=== PATIENT | female | born 1985 | race African-American/Black ===

== ENCOUNTER 2019-02-09 15:09 | Emergency (ER) | payer OTHER ==
[~2019-02-09] VITALS: Ht 154.9 cm; Wt 54.4 kg
[~2019-02-09 15:09] MED LIST: ALBU2.5V8 INH; ONDA4TAB7 PO; PROM118S5 PO
[2019-02-09 15:25] VITALS: BP 130/69
--- NOTE | 2019-02-09 15:37 | PHYS DOC ---
Past Medical History Past Medical History: No Pertinent History Past Surgical History: Tubal ligation Alcohol Use: None Drug Use: None Adult General Chief Complaint Chief Complaint: COUGH HPI HPI Patient is a 33-year-old female who presents with complaint of productive cough and chest soreness. Patient states symptoms been present for close to a week now. She states that the cough is productive of green sputum. She denies any fever. She states that she is really sore in her lower ribs and her abdomen from all the coughing. She denies any nausea or vomiting.[] Review of Systems Review of Systems Constitutional: Denies fever or chills [] Respiratory: Complains of productive cough without shortness of breath [] Cardiovascular: No additional information not addressed in HPI [] GI: Denies abdominal pain, nausea, vomiting or diarrhea [] Allergies Allergies Allergies Coded Allergies Type Severity Reaction Last Updated Verified No Known Drug Allergies 05/08/13 No Physical Exam Physical Exam Constitutional: Well developed, well nourished, no acute distress, non-toxic appearance. [] Neck: Normal range of motion, no tenderness, supple, no stridor. [] Cardiovascular: Regular rate and rhythm[] Lungs & Thorax: There are fine rhonchi noted to auscultation [] Extremities: No tenderness, no cyanosis, no clubbing, ROM intact, no edema. [] Current Patient Data Vital Signs Vital Signs Date Time Temp Pulse Resp B/P (MAP) Pulse Ox O2 Delivery O2 Flow Rate FiO2 02/09/19 15:25 98.5 99 18 130/69 (89) 97 Room Air 98.5 EKG EKG [] Radiology/Procedures Radiology/Procedures [] Impressions: Chest x-ray demonstrates no acute process. Course & Med Decision Making Course & Med Decision Making Pertinent Labs and Imaging studies reviewed. (See chart for details) [] Dragon Disclaimer Dragon Disclaimer This electronic medical record was generated, in whole or in part, using a voice recognition dictation system. Departure Departure Impression: Primary Impression: Acute bronchitis Disposition: 01 HOME, SELF-CARE Condition: STABLE Referrals: NO PCP (PCP) Patient Instructions: Acute Bronchitis Scripts Benzonatate (TESSALON PERLE) 100 Mg Capsule 1 CAP PO TID PRN for COUGH, #21 CAP Prov: JULIAN COFFEY Jr. DO 02/09/19 Azithromycin (ZITHROMAX) 250 Mg Tablet 1 PKG PO UD, #6 TAB Prov: JULIAN COFFEY Jr. DO 02/09/19 Problem Qualifiers Primary Impression: Acute bronchitis Bronchitis organism: unspecified organism Qualified Codes: J20.9 - Acute bronchitis, unspecified JULIAN COFFEY Jr. DO Feb 09, 2019 15:37
[2019-02-09] MEDS ORDERED: BENZ100C PO (15:53)
[2019-02-09] MEDS ORDERED: AZIT250T PO (15:53)
[2019-02-09] MEDS ORDERED: TRAM50TA PO (15:57)
[2019-02-09] MEDS ORDERED: AZITHROMYCIN 250 MG TABLET. ONE (15:57)
[2019-02-09] MEDS ORDERED: AZITHROMYCIN 250 MG TABLET. PO ONE (16:00)
--- NOTE | 2019-02-09 16:32 | RAD ---
PA and lateral chest. HISTORY: Cough PA and lateral views were taken of the chest. Lungs are clear. Heart is normal in size. There is no pleural effusion. IMPRESSION: 1. No acute chest disease. Electronically signed by: Mario Taylor MD (02/09/2019 4:29 PM) [id number]
== END 2019-02-09 16:00 | disposition home or self-care (01) ==
LOC: ER 15:09
DX: J20.9 Acute bronchitis, unspecified (principal)
CPT/HCPCS: 71046; 99284; Q0144

== ENCOUNTER 2019-04-28 13:41 | Emergency (ER) | payer OTHER ==
[~2019-04-28] VITALS: Ht 149.9 cm; Wt 75.0 kg
[~2019-04-28 13:41] MED LIST changes: +AZIT250T PO; +BENZ100C PO; +TRAM50TA PO
[2019-04-28 14:10] VITALS: BP 122/55
[2019-04-28] MEDS ORDERED: HYDR-3164 PO (14:52)
[2019-04-28] MEDS ORDERED: CHLO15MO2 PO (14:52)
--- NOTE | 2019-04-28 14:52 | PHYS DOC ---
Past Medical History Past Medical History: No Pertinent History Past Surgical History: Tubal ligation Smoking Status: Former Smoker Alcohol Use: None Drug Use: None Adult General Chief Complaint Chief Complaint: DENTAL PROBLEM HPI HPI Patient is a 33 year old female who presents with 1 week of left upper and lower dental pain. Patient has many dental caries. States that she went to [facility] one month ago and they took x-rays and said that they can do much for her because she has broken bones at the top of her mouth she has had for very long time and that she needs to go to a specialist. She states that she called the number and left a message for the specialist dentist and they called back and told her that it could be $20-$25,000 to get her mouth 6. Patient rates her pain a 9 out of 10. She denies fevers, nausea, vomiting, headache, body aches, facial swelling. Review of Systems Review of Systems HENT: Denies nasal congestion or sore throat. Dental pain [] All other systems were reviewed and found to be within normal limits, except as documented in this note. Allergies Allergies Allergies Coded Allergies Type Severity Reaction Last Updated Verified No Known Drug Allergies 05/08/13 No Physical Exam Physical Exam Constitutional: Well developed, well nourished, no acute distress, non-toxic appearance. [] HENT: Normocephalic, atraumatic, bilateral external ears normal, oropharynx moist, no oral exudates, nose normal. Many Dental caries all over mouth. [] Eyes: PERRLA, EOMI, conjunctiva normal, no discharge. [] Neck: Normal range of motion, no tenderness, supple, no stridor. [] Cardiovascular:Heart rate regular rhythm, no murmur [] Lungs & Thorax: Bilateral breath sounds clear to auscultation [] Abdomen: Bowel sounds normal, soft, no tenderness, no masses, no pulsatile masses. [] Skin: Warm, dry, no erythema, no rash. [] Back: No tenderness, no CVA tenderness. [] Extremities: No tenderness, no cyanosis, no clubbing, ROM intact, no edema. [] Neurologic: Alert and oriented X 3, normal motor function, normal sensory function, no focal deficits noted. [] Psychologic: Affect normal, judgement normal, mood normal. [] Current Patient Data Vital Signs Vital Signs Date Time Temp Pulse Resp B/P (MAP) Pulse Ox O2 Delivery O2 Flow Rate FiO2 04/28/19 14:10 98.6 66 14 122/55 (77) 99 Room Air 98.6 EKG EKG [] Radiology/Procedures Radiology/Procedures [] Course & Med Decision Making Course & Med Decision Making Pertinent Labs and Imaging studies reviewed. (See chart for details) Has many dental caries all over her mouth. There is no gumline swelling or redness. No drainage and she is afebrile. She is told to keep calling the specialists and trying to get into his see a dentist. She states she's been trying Orajel and ibuprofen is not helping. Alert and oriented. speaks in full clear sentences. No facial swelling. Patient states she's been eating and drinking appropriately. No trismus. [] Dragon Disclaimer Dragon Disclaimer This electronic medical record was generated, in whole or in part, using a voice recognition dictation system. Departure Departure Impression: Primary Impression: Pain, dental Additional Impression: Dental caries Disposition: 01 HOME, SELF-CARE Condition: STABLE Referrals: NO PCP (PCP) Patient Instructions: Dental Caries-Brief, Dental Pain, [id number] Additional Instructions: Follow-up with dentist as soon as possible. Take medication as prescribed. Scripts Chlorhexidine Gluconate (PERIDEX) 15 Ml Mouthwash 15-30 ML PO TID for 8 Days, #473 ML 0 Refills Prov: SUGAR MCCLELLAND APRN 04/28/19 Hydrocodone/Apap 5-325 (NORCO 5-325 TABLET) 1 Each Tablet 1 TAB PO PRN Q6HRS PRN for PAIN, #10 TAB 0 Refills Prov: SUGAR MCCLELLAND APRN 04/28/19 Problem Qualifiers SUGAR MCCLELLAND APRN Apr 28, 2019 14:52
== END 2019-04-28 14:56 | disposition home or self-care (01) ==
LOC: ER 13:41
DX: K02.9 Dental caries, unspecified (principal); K08.89 Other specified disorders of teeth and supporting structures; Z87.891 Personal history of nicotine dependence
CPT/HCPCS: 99283

== ENCOUNTER 2019-05-27 15:00 | Emergency (ER) | payer OTHER ==
[~2019-05-27] VITALS: Ht 149.9 cm; Wt 145.0 kg
[~2019-05-27 15:00] MED LIST changes: +CHLO15MO2 PO; +HYDR-3164 PO
[2019-05-27 15:25] VITALS: BP 124/59
--- NOTE | 2019-05-27 15:46 | PHYS DOC ---
Past Medical History Past Medical History: No Pertinent History Past Surgical History: Tubal ligation Smoking Status: Never Smoker Alcohol Use: None Drug Use: None Adult General Chief Complaint Chief Complaint: SHORTNESS OF BREATH HPI HPI Patient is a 33 year old female presents to the ED with a chief complaint of cough and shortness of breath. Patient states that the symptoms started yesterday. Patient states that her daughter current coronavirus pandemic she was concerned and came to the ER to see if she could get tested. Patient denies being an active smoker. Patient denies any medical history. Patient denies having a fever. Review of Systems Review of Systems Patient denies fever, chills, nausea, vomiting, diarrhea, dysuria, chest pain, headache. Patient does complain of cough and shortness of breath All other systems were reviewed and found to be within normal limits, except as documented in this note. Allergies Allergies Allergies Coded Allergies Type Severity Reaction Last Updated Verified No Known Drug Allergies 05/08/13 No Physical Exam Physical Exam Constitutional: Well developed, well nourished, no acute distress, non-toxic appearance. [] HENT: Normocephalic, atraumatic Eyes: PERRLA, EOMI Neck: Normal range of motio Cardiovascular:Heart rate regular rhythm, no murmur [] Lungs & Thorax: Bilateral breath sounds clear to auscultation [] Abdomen: Bowel sounds normal, soft, no tenderness Extremities: No tenderness, no cyanosis, no clubbing, ROM intact, no edema. [] Neurologic: Alert and oriented X 3 Current Patient Data Vital Signs Vital Signs Date Time Temp Pulse Resp B/P (MAP) Pulse Ox O2 Delivery O2 Flow Rate FiO2 05/27/19 15:25 98.9 97 22 124/59 (80) 99 Room Air 98.9 EKG EKG [] Radiology/Procedures Radiology/Procedures [] Course & Med Decision Making Course & Med Decision Making I told patient that we not testing patients for coronavirus unless they are being admitted to the hospital. This is hospital policy. I have offered to do chest x-ray and flu screening. Patient states that she does not want any testing done. She has only wanted to come to the ER to see if she can be tested for the coronavirus. I have answered some questions that patient had about the coronavirus. Patient is reassured and states that she will go home. Patients oxygen sat is 99%. Discussed plan of care with patient. Patient is instructed to follow up with PCP in one to 2 days. Appropriate discharge instructions given to patient to return to the ED or to seek immediate medical evaluation. Patient is instructed to return to the ED if symptoms worsen or if any concerns. Dragon Disclaimer Dragon Disclaimer This electronic medical record was generated, in whole or in part, using a voice recognition dictation system. Departure Departure Impression: Primary Impression: Viral URI with cough Disposition: HOME, SELF-CARE Condition: STABLE Referrals: NO PCP (PCP) Patient Instructions: Upper Respiratory Infection, Adult Additional Instructions: Patient is instructed to follow up with PCP in one to 2 days. Appropriate discharge instructions given to patient to return to the ED or to seek immediate medical evaluation. Patient is instructed to return to the ED if symptoms worsen or if any concerns. BONI VARGAS DO May 27, 2019 15:46
== END 2019-05-27 16:15 | disposition home or self-care (01) ==
LOC: ER 15:00
DX: J06.9 Acute upper respiratory infection, unspecified (principal)
CPT/HCPCS: 99281

== ENCOUNTER 2019-11-04 13:58 | Emergency (ER) | payer OTHER ==
[~2019-11-04] VITALS: Ht 157.5 cm; Wt 62.0 kg
[2019-11-04 14:11] VITALS: BP 137/63
[2019-11-04] MEDS ORDERED: TRAM50TA PO (14:25)
--- NOTE | 2019-11-04 14:26 | PHYS DOC ---
Past Medical History Past Medical History: No Pertinent History Past Surgical History: Tubal ligation Smoking Status: Never Smoker Alcohol Use: None Drug Use: None General Adult EDM: Chief Complaint: BACK PAIN OR INJURY HPI: HPI: Patient is a 34 year old female who presents with a heavy metal rack fell on he r back in June and she has had continued mid to lower back pain that worsens with movement. 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 She states that they want to send her to physical therapy but she cannot get a hold of anybody. She states that she has a court date on November 18. She states that she ran out of tramadol yesterday and that is been helping her pain. She currently rates her sharp aching pain 8 out of 10. Review of Systems: Review of Systems: Constitutional: Denies fever or chills. [] Eyes: Denies change in visual acuity. [] HENT: Denies nasal congestion or sore throat. [] Respiratory: Denies cough or shortness of breath. [] Cardiovascular: Denies chest pain or edema. [] GI: Denies abdominal pain, nausea, vomiting, bloody stools or diarrhea. [] : Denies dysuria. [] Musculoskeletal: Mid to lower back pain or joint pain. [] Integument: Denies rash. [] Neurologic: Denies headache, focal weakness or sensory changes. Intermittent right hand tingling or numbness. [] Endocrine: Denies polyuria or polydipsia. [] Lymphatic: Denies swollen glands. [] Psychiatric: Denies depression or anxiety. [] Heart Score: Risk Factors: Risk Factors: DM, Current or recent (<one month) smoker, HTN, HLP, family history of CAD, obesity. Risk Scores: Score 0 - 3: 2.5% MACE over next 6 weeks - Discharge Home Score 4 - 6: 20.3% MACE over next 6 weeks - Admit for Clinical Observation Score 7 - 10: 72.7% MACE over next 6 weeks - Early Invasive Strategies Allergies: Allergies: Allergies Coded Allergies Type Severity Reaction Last Updated Verified No Known Drug Allergies 05/08/13 No Physical Exam: PE: Constitutional: Well developed, well nourished, no acute distress, non-toxic appearance. [] HENT: Normocephalic, atraumatic, bilateral external ears normal, oropharynx moist, no oral exudates, nose normal. [] Eyes: PERRLA, EOMI, conjunctiva normal, no discharge. [] Neck: Normal range of motion, no tenderness, supple, no stridor. [] Cardiovascular:Heart rate regular rhythm, no murmur [] Lungs & Thorax: Bilateral breath sounds clear to auscultation [] Abdomen: Bowel sounds normal, soft, no tenderness, no masses, no pulsatile masses. [] Skin: Warm, dry, no erythema, no rash. [] Back: Mid to upper lumbar focal bony spinal tenderness, no CVA tenderness. [] Extremities: No tenderness, no cyanosis, no clubbing, ROM intact, no edema. [] Neurologic: Alert and oriented X 3, normal motor function, normal sensory function, no focal deficits noted. [] Psychologic: Affect normal, judgement normal, mood normal. [] EKG: EKG: [] Radiology/Procedures: Radiology/Procedures: [] Course & Med Decision Making: Course & Med Decision Making Pertinent Labs and Imaging studies reviewed. (See chart for details) See HPI. Ambulatory with a steady gait. No saddle paresthesia. Speaks in full complete sentences. Alert and oriented x4. Patient states she only has numbness and tingling in her mid leg since the incident and her right hand. Patient denies any numbness and tingling in her bilateral lower extremities, loss of bowel bladder, dizziness, headache, fever, dysuria symptoms, chest pain, shortness of breath, abdominal pain, nausea, vomiting, diarrhea. Skin pink warm and dry. Radial pulses strong present. Bilateral lower extremities and upper extremities have equal strengths and dial marker. No extremity edema. Patient states when her right hand intermittently goes numb or starts tingling that is when she loses some strength in the hand. With palpation patient has focal bony spinal tenderness through the thoracic down into the upper lumbar areas. There is no bruising, deformity, swelling seen or felt. Neurologically intact. Xrays read by Dr Rucker as no acute findings. Patient to follow up with work compensation doctor. [] Hugo Disclaimer: Hugo Disclaimer: This electronic medical record was generated, in whole or in part, using a voice recognition dictation system. Departure Departure Impression: Primary Impression: Back pain Qualified Codes: M54.5 - Low back pain Additional Impression: Numbness and tingling in right hand Disposition: HOME, SELF-CARE Condition: STABLE Referrals: NO PCP (PCP) Patient Instructions: Back Pain, Adult Additional Instructions: Follow-up with the work comp physician as soon as possible. Take medication as prescribed do not drink alcohol or do other drugs with this medication. Scripts Tramadol Hcl (TRAMADOL HCL) 50 Mg Tablet 50 MG PO Q6HRS PRN for PAIN, #10 TAB Prov: SUGAR MCCLELLAND APRN 11/04/19 Justicifation of Admission Dx: Justifications for Admission: Justification of Admission Dx: N/A SUGAR MCCLELLAND APRN Nov 04, 2019 14:26
--- NOTE | 2019-11-04 16:13 | RAD ---
Exam: Thoracic spine 2 views. Lumbar spine 2 views INDICATION: Pain TECHNIQUE: Frontal and lateral views of the thoracic and lumbar spine. Swimmer's view of the cervicothoracic junction and coned-down view of the lumbosacral junction were also reviewed. Comparisons: None FINDINGS: Thoracic spine: Vertebral body heights and alignment are well-maintained. No significant spondylotic change in the thoracic spine. Visualized soft tissues are unremarkable. Lumbar spine: Vertebral body heights and alignment are well-maintained. Visualized soft tissues are unremarkable. Mild facet arthropathy noted at the lower lumbar spine. IMPRESSION: 1. Unremarkable thoracic spine are dressed. 2. Mild spondylotic changes lumbar spine. Electronically signed by: Harry Andrade MD (11/04/2019 4:10 PM) [id number]
== END 2019-11-04 15:50 | disposition home or self-care (01) ==
LOC: ER 13:58
DX: M54.5 Low back pain (principal); R20.0 Anesthesia of skin; Z98.51 Tubal ligation status
CPT/HCPCS: 72072; 72110; 99284

== ENCOUNTER 2020-07-23 07:00 | Emergency (ER) | payer OTHER ==
[~2020-07-23] VITALS: Ht 149.9 cm; Wt 68.1 kg
[2020-07-23] MEDS ORDERED: ONDANSETRON ODT 4 MG TAB.RAPDIS. PO ONE (07:30)
[2020-07-23 07:48] LABS: BILIRUBIN,URINE NEGATIVE (NEG); CLARITY,URINE TURBID; COLOR,URINE YELLOW; NITRITE,URINE NEGATIVE (NEG); PROTEIN,URINE 30 mg/dL (NEG-TRACE)
--- NOTE | 2020-07-23 07:52 | PHYS DOC ---
Past Medical History Past Medical History: No Pertinent History Past Surgical History: Tubal ligation Smoking Status: Current Every Day Smoker Alcohol Use: Rarely Drug Use: None General Adult EDM: Chief Complaint: SUBSTANCE ABUSE HPI: HPI: 34-year-old -Kitt[place] female presents the ED past medical history of former alcoholism, complaints of nausea, nonbloody nonbilious vomiting and epigastric abdominal pain that started a few hours prior to arrival. Patient reports her sister was recently killed and she relapsed, drank a bottle of champagne by herself, last drink at 3 AM. States her abdominal pain feels like her prior history of pancreatitis (6 yrs ago). Is crying, stating "my son was so made at me," for drinking alcohol. Takes no routinely prescribed medications. History of tubal ligation. Denies any other drug use. Denies any HI or SI. Review of Systems: Review of Systems: Constitutional: Denies fever or chills. [] Eyes: Denies change in visual acuity. [] HENT: Denies nasal congestion or sore throat. [] Respiratory: Denies cough or shortness of breath. [] Cardiovascular: Denies chest pain or edema. [] GI: Denies bloody stools or diarrhea. [] : Denies dysuria or vaginal bleeding Musculoskeletal: Denies back pain or joint pain. [] Integument: Denies rash or diaphoresis Neurologic: Denies headache, focal weakness or sensory changes. [] Endocrine: Denies polyuria or polydipsia. [] Lymphatic: Denies swollen glands. [] Psychiatric: Denies depression or anxiety. [] Heart Score: C/O Chest Pain: No Risk Factors: Risk Factors: DM, Current or recent (<one month) smoker, HTN, HLP, family history of CAD, obesity. Risk Scores: Score 0 - 3: 2.5% MACE over next 6 weeks - Discharge Home Score 4 - 6: 20.3% MACE over next 6 weeks - Admit for Clinical Observation Score 7 - 10: 72.7% MACE over next 6 weeks - Early Invasive Strategies Current Medications: Current Medications Medications (Trade) Dose Ordered Sig/Eli Start Time Stop Time Status Last Admin Dose Admin Hydromorphone HCl (Dilaudid) 0.5 mg 1X ONCE 07/23/20 07:45 07/23/20 07:46 UNV Metoclopramide HCl (Reglan Vial) 10 mg 1X ONCE 07/23/20 07:45 07/23/20 07:46 UNV Ondansetron HCl (Zofran Odt) 4 mg 1X ONCE 07/23/20 07:30 07/23/20 07:31 DC Sodium Chloride 1,000 ml @ 1,000 mls/hr 1X ONCE 07/23/20 07:45 07/23/20 08:44 Allergies: Allergies: Allergies Coded Allergies Type Severity Reaction Last Updated Verified No Known Drug Allergies 05/08/13 No Physical Exam: PE: Constitutional: Well developed, well nourished, no acute distress, non-toxic appearance. HENT: Normocephalic, atraumatic, moist mucous membranes Eyes: EOMI, conjunctiva normal, no discharge. Neck: Normal range of motion, supple, Cardiovascular: S1/2 present, regular rhythm Lungs & Thorax: Speaking in full sentences, bilateral equal chest rise, no tachypnea or increased work of breathing Abdomen: soft, epigastric ttp, no rigidity or guarding, skin flap/has lost weight, active yellow emesis in basin Skin: Warm, dry, no erythema, no rash. [] Back: No tenderness, no CVA tenderness. [] Extremities: No tenderness, no cyanosis, no lower extremity edema Neurologic: Alert and oriented X 3, normal motor function, normal sensory function, no focal deficits noted. [] Psychologic: Affect normal, judgement normal, mood-tearful/very hard on herself Current Patient Data: Labs: Laboratory Tests Test 07/23/20 07:30 POC Urine HCG, Qualitative Hcg negative (Negative) Vital Signs: Vital Signs Date Time Temp Pulse Resp B/P (MAP) Pulse Ox O2 Delivery O2 Flow Rate FiO2 07/23/20 07:38 98.4 90 22 126/75 (92) 100 Room Air 98.4 EKG: EKG: sinus rhythm 96bpm, NAD, normal intervals, no T wave inversion, no ST elevations or ST depressions, no active chest pain Radiology/Procedures: Radiology/Procedures: IMAGING REPORT Signed PATIENT: ADELA GRAY ACCOUNT: [id number] : 1985 LOCATION: ER AGE: 34 SEX: F EXAM STATUS: REG ER ORD. PHYSICIAN: MIGUEL BARRIOS DO REASON: epigastric pain, etoh use, h/o pancreatitis PROCEDURE: CT ABD PELV W/ IV CONTRST ONLY EXAM: Abdomen and pelvis CT with intravenous contrast. HISTORY: Epigastric pain. TECHNIQUE: Computed tomographic images of the abdomen and pelvis were obtained following the administration of intravenous contrast. Multiplanar reformatting was performed. *One or more of the following individualized dose reduction techniques were utilized for this examination: 1. Automated exposure control. 2. Adjustment of the mA and/or kV according to patient size. 3. Use of iterative reconstruction technique. COMPARISON: 05/05/2017. FINDINGS: Evaluation of the lower thorax demonstrates no infiltrate or pleural effusion. The heart is normal in size. There is mild fatty infiltration of the liver along the falciform ligament. No suspicious hepatic lesion is seen. The gallbladder is unremarkable. The pancreas, spleen, stomach and adrenal glands are unremarkable. The kidneys are unremarkable. There is no evidence of appendicitis. There is mild colonic wall thickening likely due to relative under distention. There is no convincing acute colitis. There is no bowel obstruction. The aorta is normal in caliber. The bladder, uterus and adnexal regions are unremarkable. There is no suspicious or acute osseous finding. IMPRESSION: No convincing acute abdominal or pelvic finding. Electronically signed by: Rafia Durham MD (07/23/2020 8:38 AM) [id number] DICTATED and SIGNED BY: RAFIA DURHAM MD DATE: 07/23/20 [id number] 0 Course & Med Decision Making: Course & Med Decision Making Pertinent Labs and Imaging studies reviewed. (See chart for details) Concern for nausea and vomiting w/epigastric abdominal pain. Normal lipase and pancreas (and aorta) on CT imaging. U/A c/w trichomonas infection. Patient with no leukocytosis, does not meet sepsis criteria. Urinalysis is contaminated with hematuria. Patient has had tubal ligation and is on her menses. 1 male unprotected sexual partner "baby jalen," 2 months ago. Patient denies any abnormal vaginal discharge, itching or odor, lower abdominal pelvic or low back pain. No associated fever, myalgias, nausea, vomiting or flulike symptoms. Patient was treated in the ED with antiemetics, Haldol for cannabis hyperemesis syndrome. Abdominal pain and NBNB emesis resolved. GC self swab sent. Rocephin in ed, doxycycline and flagyl rx-educated to inform & treat all sexual partners. Will discharge home with strict ED return precautions were given for flulike symptoms, intractable nausea or vomiting, body aches, nausea, vomiting or worsening pain/abnormal vaginal discharge. Encouraged urgent outpatient follow- up with PMD and GREENHOUSE TECHNICIAN for definitive management of STI (perform blood-borne testing). Life-threatening processes were considered but are low suspicion at this time, given history, physical exam and ED workup. Pt was educated on all prescription medications and adverse effects. All patient's questions were answered and pt was stable at time of discharge. Life/limb-threatening differential includes but is not limited to, aortic dissection, aortic aneurysm, acute coronary syndrome, surgical abdomen (appendicitis, cholecystitis, ischemic bowel, strangulated hernia, etc), bowel obstruction or volvulus, bladder outlet obstruction, gastrointestinal bleeding, inflammatory bowel disease, peptic ulcer disease, ACS/CAD, sepsis, diverticular disease, ureterolithiasis, nephrolithiasis, ovarian or testicular torsion, ectopic , vaginal hemorrhage, or genitourinary infection. I spoken with the patient and her caregivers. I explained the patient's condition, diagnoses and treatment plan based on the information available to me at this time. I have answered the patient and her caregiver's questions and addressed any concerns. The patient and her caregivers have a good understanding of patient's diagnosis, condition and treatment plan as can be expected at this point. Vital signs have been stable. Patient's condition is stable and appropriate for discharge from the emergency department. Patient will pursue further outpatient evaluation with primary care physician or other designated or consulting physician as outlined in the discharge instructions. The patient and/or caregivers are agreeable to this plan of care and follow-up instructions have been explained in detail. The patient and/or caregivers have received these instructions in written form and have expressed an understanding of the discharge instructions. The patient and/or caregivers are aware that any significant change of condition or worsening of symptoms should prompt immediate return to this or the closest emergency department or call to 911. Hugo Disclaimer: Hugo Disclaimer: This electronic medical record was generated, in whole or in part, using a voice recognition dictation system. Departure Departure Impression: Primary Impression: Nausea and vomiting Additional Impressions: Abdominal pain Trichomonas infection Disposition: 01 HOME / SELF CARE / HOMELESS Condition: STABLE Referrals: NO PCP (PCP) Patient Instructions: Nausea and Vomiting, Safe Sex, Trichomoniasis Additional Instructions: FOLLOW UP WITH GREENHOUSE TECHNICIAN: For definitive management [facility] [address] [place] [address] EMERGENCY DEPARTMENT GENERAL DISCHARGE INSTRUCTIONS Thank you for coming to [facility] Emergency Department (ED) lorrie jeter and trusting us with you care. We trust that you had a positive experience in our Emergency Department. If you wish to speak to the department management, you may call the Director at [phone]. YOUR FOLLOW UP INSTRUCTIONS ARE FOLLOWS: 1. Do you have a private Doctor? If you do not have a private doctor, please ask for a resource list of physicians or clinics that may be able to assist you with follow up care. 2. The Emergency Physicain has interpreted your x-rays. The X-Ray specialist will also review them. If there is a change in the findings, you will be notified in 48 hours when at all possible. 3. A lab test or culture has been done, your results will be reviewed and you will be notified if you need a change in treatment. ADDITIONAL INSTRUCTIONS AND INFORMATION: 1. Your care today has been supervised by a physician who is specially trained in emergency care. Many problems require more than one evaluation for a complete diagnosis and treatment. We recommend that you schedule your follow up appointment as recommended to ensure complete treatment of you illness or injury. If you are unable to obtain follow up care and continue to have a problem, or if your condition worsens, we recommend that you return to the ED. 2. We are not able to safely determine your condition over the phone nor are we able to give sound medical advice over the phone. For these safety reasons, if you call for medical advice we will ask you to come to the ED for further evaluation. 3. If you have any questions regarding these discharge instructions please call the ED at [phone]. SAFETY INFORMATION: In the interest of safety, wellness, and injury prevention; we encourage you to wear your sealbelt, if you smoke; quite smoking, and we encourage family to use a protective helmet for bicycling and other sporting events that present an increased risk for head injury. IF YOUR SYMPTOMS WORSEN OR NEW SYMPTOMS DEVELOP, OR YOU HAVE CONCERNS ABOUT YOUR CONDITION; OR IF YOUR CONDITION WORSENS WHILE YOU ARE WAITING FOR YOUR FOLLOW UP APPOINTMENT; EITHER CONTACT YOUR PRIMARY CARE DOCTOR, THE PHYSICIAN WHOSE NAME AND NUMBER YOU WERE GIVEN, OR RETURN TO THE ED IMMEDIATELY. Scripts Metronidazole (FLAGYL) 500 Mg Tablet 1 TAB PO BID for 14 Days, #28 TAB Prov: MIGUEL BARRIOS DO 07/23/20 Ondansetron (ONDANSETRON ODT) 4 Mg Tab.rapdis 1 TAB PO PRN Q6-8HRS, #20 TAB Prov: MIGUEL BARRIOS DO 07/23/20 Doxycycline Hyclate (DOXYCYCLINE HYCLATE) 100 Mg Capsule 1 CAP PO BID for 10 Days, #20 CAP Prov: MIGUEL BARRIOS DO 07/23/20 MIGUEL BARRIOS DO July 23, 2020 07:52
[2020-07-23] MEDS ORDERED: METOCLOPRAMIDE HCL 10 MG/2 ML VIAL. ONE (07:55)
[2020-07-23] MEDS ORDERED: HYDROmorphone 2 MG/ML VIAL ONE (07:55)
[2020-07-23 07:56] LABS: BARBITURATES NEG (NEG); BENZODIAZEPINES NEG (NEG); CANNABINOIDS POS (NEG); COCAINE NEG (NEG); METHADONE NEG (NEG); OPIATES NEG (NEG); PHENCYCLIDINE NEG (NEG)
[2020-07-23 07:57] LABS: BASO # 0.1 x10^3/uL (0.0-0.2); BASO % 1 % (0-3); EOS # 0.1 x10^3/uL (0.0-0.7); EOS % 1 % (0-3); HEMATOCRIT 37.5 % (36.0-47.0); HEMOGLOBIN 12.6 g/dL (12.0-15.5); LYMPH # 2.5 x10^3/uL (1.0-4.8); LYMPH % 23 % (24-48); MEAN CORPUSCULAR HEMOGLOBIN 29 pg (25-35); MEAN CORPUSCULAR HGB CONC 34 g/dL (31-37); MEAN CORPUSCULAR VOLUME 87 fL (79-100); MONO # 0.7 x10^3/uL (0.0-1.1); MONO % 7 % (0-9); NEUT # 7.5 x10^3/uL (1.8-7.7); NEUT % 68 % (31-73); PLATELET COUNT 345 x10^3/uL (140-400); RED BLOOD COUNT 4.29 x10^6/uL (3.50-5.40); RED CELL DISTRIBUTION WIDTH 14.3 % (11.5-14.5); WHITE BLOOD COUNT 10.9 x10^3/uL (4.0-11.0)
[2020-07-23] MEDS: METOCLOPRAMIDE HCL 10 MG/2 ML VIAL. IVP ONE (07:58)
[2020-07-23] MEDS: ONDANSETRON PF 4 MG/2 ML VIAL. IVP ONE ×2 (07:58→09:15)
[2020-07-23 07:59] LABS: AMPHETAMINE/METHAMPHETAMINE NEG (NEG)
[2020-07-23] MEDS: IV NORMAL SALINE 1000ML BAG 1,000 ML IV ONE ×2 (07:59→09:56)
[2020-07-23 08:01] LABS: BACTERIA,URINE FEW /HPF (0-FEW); RBC,URINE TNTC /HPF (0-2)
[2020-07-23 08:02] LABS: AMORPHOUS SEDIMENT,UR PRESENT /HPF; TRICHOMONAS,URINE PRESENT
[2020-07-23 08:06] LABS: CALCIUM 8.8 mg/dL (8.5-10.1); CREATININE 0.6 mg/dL (0.6-1.0); GFR 138.5; POTASSIUM 3.4 mmol/L (3.5-5.1)
[2020-07-23] MEDS: HYDROmorphone 2 MG/ML VIAL IVP ONE (08:09)
[2020-07-23 08:12] LABS: ALBUMIN 4.6 g/dL (3.4-5.0); DIRECT BILIRUBIN 0.1 mg/dL (0.0-0.2); TOTAL BILIRUBIN 0.2 mg/dL (0.2-1.0); TOTAL PROTEIN 7.9 g/dL (6.4-8.2)
[2020-07-23] MEDS: IOHEXOL 300 MG/ML 100ML VIAL. IV ONE (08:22)
--- NOTE | 2020-07-23 08:41 | RAD ---
EXAM: Abdomen and pelvis CT with intravenous contrast. HISTORY: Epigastric pain. TECHNIQUE: Computed tomographic images of the abdomen and pelvis were obtained following the administ ration of intravenous contrast. Multiplanar reformatting was performed. *One or more of the following individualized dose reduction techniques were utilized for this examina tion: 1. Automated exposure control. 2. Adjustment of the mA and/or kV according to patient size. 3. Use of iterative reconstruction technique. COMPARISON: 05/05/2017. FINDINGS: Evaluation of the lower thorax demonstrates no infiltrate or pleural effusion. The heart is normal in size. There is mild fatty infiltration of the liver along the falciform ligament. No suspi cious hepatic lesion is seen. The gallbladder is unremarkable. The pancreas, spleen, stomach and adre nal glands are unremarkable. The kidneys are unremarkable. There is no evidence of appendicitis. Ther e is mild colonic wall thickening likely due to relative under distention. There is no convincing acu te colitis. There is no bowel obstruction. The aorta is normal in caliber. The bladder, uterus and ad nexal regions are unremarkable. There is no suspicious or acute osseous finding. IMPRESSION: No convincing acute abdominal or pelvic finding. Electronically signed by: Rafia Harvey MD (07/23/2020 8:38 AM) [id number]
[2020-07-23] MEDS: cefTRIAXone IM 500 MG VIAL. IM ONE (09:54)
[2020-07-23] MEDS: HALOPERIDOL LACTATE 5 MG/ML VIAL. IVP ONE (09:54)
[2020-07-23] MEDS: KETOROLAC 15 MG/ML VIAL. IVP ONE (09:55)
[2020-07-23 10:48] VITALS: BP 128/68
[2020-07-23] MEDS ORDERED: DOXY100C2 PO (11:44)
[2020-07-23] MEDS ORDERED: ONDA4TAB12 PO (11:44)
[2020-07-23] MEDS ORDERED: METR500T PO (11:46)
--- NOTE | 2020-07-23 16:01 | EKG ---
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
[2020-07-26 15:11] LABS: GC PROBE Negative (Negative)
== END 2020-07-23 11:54 | disposition home or self-care (01) ==
LOC: ER 07:00
DX: A59.9 Trichomoniasis, unspecified (principal); F17.200 Nicotine dependence, unspecified, uncomplicated; R10.13 Epigastric pain; R11.2 Nausea with vomiting, unspecified; Z98.51 Tubal ligation status
CPT/HCPCS: 36415; 74177; 80048; 80076; 80307; 81001; 81025; 82550; 83690; 84484; 85025; 87086; 87491; 87591; 93005; 96361; 96372; 96374; 96375; 96376; 99285; G0480; J0696; J1170; J1630; J1885; J2405; J2765; J7030; Q9967

== ENCOUNTER 2020-11-24 19:14 | Emergency (ER) | payer OTHER ==
[~2020-11-24 19:14] MED LIST changes: +DOXY100C3 PO; +METR500T PO; +ONDA4TAB12 PO
== END 2020-11-24 21:00 | disposition left against medical advice (07) ==
LOC: ER 19:14
DX: R05 Cough (principal); R09.81 Nasal congestion; Z53.21 Procedure and treatment not carried out due to patient leaving prior to being seen by health care provider